=== PATIENT | female | born 1985 | race Caucasian/White ===

== ENCOUNTER → 2022-01-13 | Outpatient (CLI) | payer OTHER ==
[2022-01-17 15:12] LABS: HPV 16 Negative (Negative); HPV 18 Negative (Negative); HPV OTHER HR TYPES Negative (Negative)
== END | disposition home or self-care (01) ==
LOC: LAB 10:56 → LAB SHORT 10:56
PROVIDERS: Family Medicine
DX: Z01.419 Encounter for gynecological examination (general) (routine) without abnormal findings (principal)
CPT/HCPCS: 87624; G0123

== ENCOUNTER → 2022-01-24 | Outpatient (CLI) | payer OTHER | END | disposition home or self-care (01) | LOC: LAB SHORT 08:00 | PROVIDERS: Internal Medicine Endocrinology, Diabetes & Metabolism | DX: Z09 Encounter for follow-up examination after completed treatment for conditions other than malignant neoplasm (principal); Z86.39 Personal history of other endocrine, nutritional and metabolic disease | CPT/HCPCS: 81050; 82340; 82570 ==

== ENCOUNTER 2022-02-09 23:33 | Emergency (ER) | payer OTHER ==
[~2022-02-09] VITALS: Ht 167.6 cm; Wt 65.8 kg
== END 2022-02-10 00:21 | disposition home or self-care (01) ==
LOC: ER 23:33
DX: S61.012A Laceration without foreign body of left thumb without damage to nail, initial encounter (principal); Z88.1 Allergy status to other antibiotic agents; Z88.2 Allergy status to sulfonamides; W26.0XXA Contact with knife, initial encounter; Y92.009 Unspecified place in unspecified non-institutional (private) residence as the place of occurrence of the external cause
CPT/HCPCS: 12001; 99282-25

== ENCOUNTER 2022-10-27 06:33 | Day surgery (SDC) | payer OTHER ==
[~2022-10-27] VITALS: Ht 167.6 cm; Wt 62.0 kg
[~2022-10-27 06:33] MED LIST: ALDACTONE100 MG; BUPR100ER; ESCI10; LEVO T
[2022-10-27] MEDS ORDERED: VITAMIN D310 MC4 (06:53)
[2022-10-27] MEDS ORDERED: ALBU2.5V5 (06:53)
[2022-10-27] MEDS ORDERED: LIOT5 (06:54)
[2022-10-27 09:04] VITALS: BP 98/63
== END 2022-10-27 09:07 | disposition home or self-care (01) ==
LOC: ORSCSDS 06:33
PROVIDERS: Student in an Organized Health Care Education/Training Program
PROC: 0DBK8ZX Excision of Ascending Colon, Via Natural or Artificial Opening Endoscopic, Diagnostic (ICD-10-PCS; principal; 2022-10-27 08:00)
DX: Z12.11 Encounter for screening for malignant neoplasm of colon (principal); D12.2 Benign neoplasm of ascending colon; Z85.72 Personal history of non-Hodgkin lymphomas; E03.9 Hypothyroidism, unspecified; J45.909 Unspecified asthma, uncomplicated; Z79.899 Other long term (current) drug therapy
CPT/HCPCS: 88305; J2704; J7120

== ENCOUNTER → 2023-02-19 | Outpatient (CLI) | payer OTHER ==
[~2023-02-19] MED LIST changes: +ALBU2.5V5; +LIOT5; +VITAMIN D310 MC4
== END | disposition home or self-care (01) ==
LOC: LAB SHORT 12:05 → LAB 12:05
DX: R31.9 Hematuria, unspecified (principal)
CPT/HCPCS: 87086

== ENCOUNTER 2023-03-22 02:28 | Day surgery (SDC) | payer OTHER ==
[~2023-03-22 02:28] MED LIST changes: -ALDACTONE100 MG; +ALDACTONE100 MG PO; -BUPR100ER; +BUPR100ER PO; -ESCI10; +ESCI10 PO; +EUTHYROX125 MCG PO; -LEVO T; -LIOT5; +LIOT5 PO; +METO10 PO; +ONDA4ODT MM
[2023-03-22] MEDS ORDERED: MELATONIN5 M1 PO (09:31)
[2023-03-22 09:36] VITALS: BP 151/66
== END 2023-03-22 10:21 | disposition home or self-care (01) ==
LOC: ATC 02:28
DX: R53.83 Other fatigue (principal); Z88.0 Allergy status to penicillin; Z88.8 Allergy status to other drugs, medicaments and biological substances; Z88.5 Allergy status to narcotic agent; Z88.2 Allergy status to sulfonamides; E89.0 Postprocedural hypothyroidism; E28.2 Polycystic ovarian syndrome
CPT/HCPCS: 36416; 80400; 82533; 96372; J0834